=== PATIENT | male | born 1970 | race Two or more races ===

== ENCOUNTER 2018-11-11 16:00 | Emergency (ER) | payer MEDICAID ==
[~2018-11-11] VITALS: Ht 165.1 cm; Wt 99.8 kg
[2018-11-11 16:09] VITALS: BP 119/83
== END 2018-11-11 18:14 | disposition home or self-care (01) ==
LOC: ER 16:00
DX: H00.014 Hordeolum externum left upper eyelid (principal)

== ENCOUNTER 2023-09-12 03:25 | Emergency (ER) | payer MEDICAID, OTHER ==
[~2023-09-12] VITALS: Ht 170.2 cm; Wt 108.0 kg
[2023-09-12 03:57] VITALS: BP 152/95; PULSE 79; RESP 16; O2SAT 95
[2023-09-12] MEDS ORDERED: CEPH500C PO (04:48)
[2023-09-12] MEDS ORDERED: MUPI2OIN2 EX (04:48)
[2023-09-12] MEDS ORDERED: IBUP-1456 PO (04:48)
[2023-09-12] MEDS: NEOMYCIN-BACITRACIN-POLYM UNITDOSE PKG TOP OINT TOP ONE (06:14)
[2023-09-12] MEDS: IBUPROFEN 800 MG TAB PO ONE (06:15)
[2023-09-12] MEDS: TETANUS-DIPTH-ACEL PERTUSSIS 0.5ML SYR Tdap IM ONE (06:18)
== END 2023-09-12 06:21 | disposition home or self-care (01) ==
LOC: ER 03:25
DX: S42.402A Unspecified fracture of lower end of left humerus, initial encounter for closed fracture (principal); W18.39XA Other fall on same level, initial encounter; Y93.89 Activity, other specified; Y92.89 Other specified places as the place of occurrence of the external cause; Y99.8 Other external cause status
CPT/HCPCS: 29105; 73080; 90471; 90715